=== PATIENT | male | born 1995 | race Two or more races ===

== ENCOUNTER 2023-07-04 13:52 | Emergency (ER) | payer MEDICAID ==
[~2023-07-04] VITALS: Ht 170.2 cm; Wt 96.4 kg
[2023-07-04 15:05] VITALS: BP 152/88; PULSE 108; RESP 18; TEMP 98.4; O2SAT 97
[2023-07-04] MEDS ORDERED: ERY05OO OP (16:01)
== END 2023-07-04 16:07 | disposition home or self-care (01) ==
LOC: ER 13:52
DX: H10.32 Unspecified acute conjunctivitis, left eye (principal)

== ENCOUNTER 2023-10-29 09:35 | Emergency (ER) | payer MEDICAID ==
[~2023-10-29] VITALS: Ht 175.3 cm; Wt 94.9 kg
[~2023-10-29 09:35] MED LIST: ERY05OO OP
[2023-10-29 09:54] VITALS: BP 144/81; PULSE 92; RESP 18; TEMP 97.7; O2SAT 99
[2023-10-29] MEDS ORDERED: KETOROLAC TROMETH 60MG/2ML VIAL IM ONE (10:00)
[2023-10-29 11:17] LABS: Amphetamine Screen, Urine Neg (NEGATIVE); Barbiturate Scree,Urine Neg (NEGATIVE); Benzodiazephine Screen, Urine Neg (NEGATIVE); Cannabinoid Screen, Urine Pos (NEGATIVE); Cocaine Screen, Urine Neg (NEGATIVE); Opiate Scree,Urine Neg (NEGATIVE); Phencyclidine Screen, Urine Neg (NEGATIVE)
[2023-10-29 11:23] LABS: Urine Bacteria NONE SEEN /hpf (None Seen); Urine Blood Negative /uL (Negative); Urine Clarity Clear (Clear); Urine Color Yellow (Yellow); Urine Mucus FEW (None Seen); Urine Protein, UAD TRACE (Negative); Urine Specific Gravity 1.029 (1.001-1.035); Urine Urobilinogen Normal (Negative); Urine WBC 3 /hpf (0 - 3)
[2023-10-29] MEDS ORDERED: IBUP-1456 PO (11:26)
== END 2023-10-29 11:36 | disposition home or self-care (01) ==
LOC: ER 09:35
DX: S76.012A Strain of muscle, fascia and tendon of left hip, initial encounter (principal); J45.909 Unspecified asthma, uncomplicated; F17.210 Nicotine dependence, cigarettes, uncomplicated; F12.10 Cannabis abuse, uncomplicated; F15.10 Other stimulant abuse, uncomplicated; F14.10 Cocaine abuse, uncomplicated; Z79.899 Other long term (current) drug therapy; X58.XXXA Exposure to other specified factors, initial encounter; Y93.39 Activity, other involving climbing, rappelling and jumping off; Y92.89 Other specified places as the place of occurrence of the external cause; Y99.8 Other external cause status
CPT/HCPCS: 73502; 80307; 81001; 96372; 99284; J1885

== ENCOUNTER 2023-11-02 17:44 | Emergency (ER) | payer MEDICAID ==
[~2023-11-02] VITALS: Ht 172.7 cm; Wt 95.5 kg
[~2023-11-02 17:44] MED LIST changes: +IBUP-1456 PO
[2023-11-02] MEDS ORDERED: KETOROLAC TROMETH 60MG/2ML VIAL IM ONE (22:30)
[2023-11-03] MEDS ORDERED: LIDO5PAD8 EX (00:13)
[2023-11-03 00:43] VITALS: BP 132/85; PULSE 98; RESP 20; TEMP 98; O2SAT 99
== END 2023-11-03 00:43 | disposition home or self-care (01) ==
LOC: ER 17:44
DX: S76.012A Strain of muscle, fascia and tendon of left hip, initial encounter (principal); J45.909 Unspecified asthma, uncomplicated; F17.210 Nicotine dependence, cigarettes, uncomplicated; Z79.2 Long term (current) use of antibiotics; Z79.1 Long term (current) use of non-steroidal anti-inflammatories (NSAID); Z79.899 Other long term (current) drug therapy; X58.XXXA Exposure to other specified factors, initial encounter; Y93.89 Activity, other specified; Y92.89 Other specified places as the place of occurrence of the external cause; Y99.8 Other external cause status
CPT/HCPCS: 73700; 96372; 99285; J1885

== ENCOUNTER 2024-02-15 07:36 | Emergency (ER) | payer MEDICAID ==
[~2024-02-15] VITALS: Ht 180.3 cm; Wt 99.1 kg
[~2024-02-15 07:36] MED LIST changes: +LIDO5PAD12 EX
[2024-02-15 08:16] VITALS: BP 118/65; PULSE 91; RESP 18; TEMP 97.1; O2SAT 98
[2024-02-15] MEDS ORDERED: FAMO20TA10 PO (08:27)
[2024-02-15] MEDS ORDERED: HYDR-4924 PO (08:27)
[2024-02-15] MEDS ORDERED: PRED20TA2 PO (08:27)
== END 2024-02-15 08:33 | disposition home or self-care (01) ==
LOC: ER 07:36
DX: T78.40XA Allergy, unspecified, initial encounter (principal); J45.909 Unspecified asthma, uncomplicated; F17.210 Nicotine dependence, cigarettes, uncomplicated; F12.10 Cannabis abuse, uncomplicated; F15.10 Other stimulant abuse, uncomplicated; F14.10 Cocaine abuse, uncomplicated; F11.10 Opioid abuse, uncomplicated; X58.XXXA Exposure to other specified factors, initial encounter

== ENCOUNTER 2025-02-22 17:51 | Emergency (ER) | payer MEDICAID ==
[~2025-02-22] VITALS: Ht 185.4 cm; Wt 77.2 kg
[~2025-02-22 17:51] MED LIST changes: +FAMO20TA10 PO; +HYDR-4924 PO; +PRED20TA2 PO
[2025-02-22] MEDS: ALPRAZolam 0.5 MG TAB PO ONE (19:00)
[2025-02-22] MEDS: KETOROLAC TROMETH 60MG/2ML VIAL IM ONE (19:02)
--- NOTE | 2025-02-22 19:08 | DVH ---
EXAM: XY R KNEE 3V XRAY, XY R ANKLE 3 VIEW CLINICAL INDICATION: FALL TECHNIQUE: XY R KNEE 3V XRAY, XY R ANKLE 3 VIEW Comparison: None FINDINGS/IMPRESSION: There is no evidence of acute fracture or dislocation. The visualized joint space is well maintained. The alignment is anatomical. There is no radiopaque foreign body.
--- NOTE | 2025-02-22 19:15 | DVH ---
EXAM: XY L FOOT 3 VIEW XRAY HISTORY: Great toe injury COMPARISON: None TECHNIQUE: Three views of the left foot were performed. FINDINGS: There is an ununited corner fracture involving the medial head of the proximal phalanx of the great t oe but no acute findings. Bone density is normal. IMPRESSION: Old corner fracture involving the head of the proximal phalanx of the great toe no acute findings
--- NOTE | 2025-02-22 19:16 | DVH ---
EXAM: XY L KNEE 3V XRAY HISTORY: Trauma/injury COMPARISON: XY R KNEE 3V XRAY on DOS: 02/22/25 TECHNIQUE: 3 views of the left knee were performed. FINDINGS: No acute fracture is identified about the left knee. No significant joint space narrowing. Possible joint effusion suprapatellar bursa IMPRESSION: 1. . Possible joint effusion suprapatellar bursa. Follow-up MRI may be helpful
[2025-02-22] MEDS ORDERED: IBUP-1455 PO (19:49)
--- NOTE | 2025-02-22 19:50 | ED.PDOC ---
Musculoskeletal HPI Comments Patient is a pleasant but autistic and schizophrenic 30-year-old male who was brought in by his mom today for evaluation of toe, ankle and bilateral knee concerns. Patient apparently had a fit at home and threw himself on the ground injuring himself. Mom states this is not the 1st time events like that of happened. Patient arrives slightly anxious and mom requested something for anxiety. No blood loss. Patient denies any head trauma. 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 Chief Complaint: Lower Extremity Time Seen by MD: 18:07 Primary Care Provider: GARRETT Choi Notes: Nurses Notes Allergies: Coded Allergies: NO KNOWN ALLERGIES (Unverified , 11/21/15) Home Meds Active Scripts Hydroxyzine HCl (Hydroxyzine Hydrochloride) 25 Mg Tab, 25 MG PO Q6HPRN PRN, #30 TAB Prov:KYLE CLARKE [facility] 02/15/24 Famotidine (PEPCID TABLET) 20 Mg Tb, 1 TAB PO BID for 5 Days, #10 TAB 5 Refills Prov:KYLE CLARKE [facility] 02/15/24 Prednisone (Prednisone) 20 Mg Tab, 40 MG PO DAILY for 5 Days, #10 MG Prov:KYLE CLARKE [facility] 02/15/24 Lidocaine (Lidocaine Patch 5%) 5 % Pad, 1 APPLIC EX DAILY PRN, #30 PATCH 0 Refills Prov:MIKE BAILEY [employer] 11/03/23 Ibuprofen (Ibuprofen) 800 Mg Tab, 1 TAB PO TID, #30 TAB Prov:PATRICIA ARGUETA 10/29/23 Erythromycin (Erythromycin) 5 Mg/Gm Oin, 1 APPLIC OP QID for 7 Days, #5 OZ 0 Refills Prov:ISACC CALDWELL [employer] 07/04/23 Information Source: Patient, Relative (Mother) Mode of Arrival: EMS Location: Bilateral Extremity Location: Ankle, Knee, Other (Left great toe) Timing: Minutes Prehospital treatment: None Severity: Mild Hand Dominance: Right Mechanism: Blunt Trauma Circumstances: Accident Onset of Symptoms: After Trauma Symptoms: Swelling, Pain DVT Risk Factors: NONE Past Medical History PAST MEDICAL HISTORY: Asthma, Schizophrenia Past Medical History (Other): Autism Surgical History: Denies all surgeries Family History Family History: Reviewed,noncontributory to illness Social History Smoker: Cigarettes, Less Than 1 Pack/Day Alcohol: Occasionally Drugs: Cocaine, Heroin, Marijuana, Methamphetamine Lives In: Home Constitutional: denies: chills, diaphoresis, fatigue, fever, malaise, sweats, weakness, others EENTM: denies: blurred vision, double vision, ear bleeding, ear discharge, ear drainage, ear pain, ear ringing, eye pain, eye redness, hearing loss, mouth pain, mouth swelling, nasal discharge, nose bleeding, nose congestion, nose p ain, photophobia, tearing, throat pain, throat swelling, voice changes, others Respiratory: denies: cough, hemoptysis, orthopnea, SOB at rest, shortness of breath, SOB with excertion, stridor, wheezing, others Cardiovascular: denies: chest pain, dizzy spells, diaphoresis, Dyspnea on exertion, edema, irregular heart beat, left arm pain, lightheadedness, palpitations, PND, syncope, others Gastrointestinal: denies: abdomen distended, abdominal pain, blood streaked bowels, constipated, diarrhea, dysphagia, difficulty swallowing, hematemesis, melena, nausea, poor appetite, poor fluid intake, rectal bleeding, rectal pain, vomiting, others Genitourinary: denies: burning, dysuria, flank pain, frequency, hematuria, incontinence, penile discharge, penile sore, pain, testicle pain, testicle swelling, urgency, others Neurological: denies: dizziness, fainting, headache, left sided numbness, left sided weakness, numbness, paresthesia, pre-existing deficit, right sided numbness, right sided weakness, seizure, speech problems, tingling, tremors, weakness, others Musculoskeletal: reports: others (Left great toe, right ankle, bilateral knee pain); denies: back pain, gout, joint pain, joint swelling, muscle pain, muscle stiffness, neck pain Integumetry: denies: bruises, change in color, change in hair/nails, dryness, laceration, lesions, lumps, rash, wounds, others Allergic/Immunocompromised: denies: Difficulty Healing, Frequent Infections, Hives, Itching, others Hematologic/Lymphatic: denies: anemia, blood clots, easy bleeding, easy bruising, swollen glands, others Endocrine: denies: excessive hunger, excessive sweating, excessive thirst, excessive urination, flushing, intolerance to cold, intolerance to heat, unexplained weight gain, unexplained weight loss, others Psychiatric: denies: anxiety, bipolar disorder, depression, hopeless, panic disorder, schizophrenia, sleepless, suicidal, others Physical Exam General Appearance: Moderate Distress ([id number] distress due to pain concerns as well as agitation), Normal HEENT: Normal ENT Inspection, Pharynx Normal, TMs Normal Neck: Full Range of Motion, Non-Tender, Normal, Normal Inspection Respiratory: Chest Non-Tender, Lungs Clear, No Accessory Muscle Use, No Respiratory Distress, Normal Breath Sounds Cardiovascular: No Edema, No JVD, No Murmur, No Gallop, Normal Peripheral Pulses, Regular Rate/Rhythm Breast Exam: Deferred Gastrointestinal: No Organomegaly, Non Tender, No Pulsatile Mass, Normal Bowel Sounds, Soft Genitalia: Deferred Pelvic: Deferred Rectal: Deferred Extremities: Other (Left great toe reveals some angular deformity. Right ankle has localized edema without erythema. Bilateral knees were relatively unremarkable. No definitive edema noted. [id number] reduced range of motion throughout. Neurovascularly intact.) Neurologic: Alert, No Motor Deficits, Normal Affect, Normal Mood, No Sensory Deficits Cerebellar Function: Normal Reflexes: Normal Skin: Dry, Normal Color, Warm Lymphatic: No Adenopathy Was a procedure done? Was a procedure done?: No Differential Diagnosis EXT Differential Diagnosis: Fracture, Sprain, Contusion, Strain X-Ray, Labs, Meds, VS Vital Signs Date Time Temp Pulse Resp B/P (MAP) Pulse Ox O2 Delivery O2 Flow Rate FiO2 02/22/25 18:05 98.5 84 16 132/66 (88) 99 98.5 Current Medications Medications (Trade) Dose Ordered Sig/Leona Route Start Time Stop Time Status Last Admin Alprazolam (Xanax Tablet) 1 mg ONCE ONCE PO 02/22/25 18:15 02/22/25 18:17 DC 02/22/25 19:00 Ketorolac Tromethamine (Toradol Injection) 30 mg ONCE ONCE IM 02/22/25 18:15 02/22/25 18:17 DC 02/22/25 19:02 X-Ray, Labs, Meds, VS Comment All studies performed the ED were evaluated by me personally. Imaging studies of the bilateral knees were unremarkable for any fracture. Right ankle was unremarkable for any fracture concerns. Left great toe appears to have a non healed fracture that is old. Patient has been advised to follow up with primary care provider for discussions related to that injury. Advised mom follow up with psychiatric and primary care support for medication management to address his currently unmedicated anxiety events. 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 Patient should follow up with primary care provider for discussions related to his nonhealing left great toe concern. Additionally, patient should follow up with his psychiatrist for discussions related to anxiety and panic attack events that I believe are not being properly medicated. e-Prescriptions Ibuprofen Micronized (Ibuprofen) 800 Mg Tab 800 MG PO Q8HP PRN, #30 TAB Prov: MITCHELL CRUZ PAC 02/22/25 Discharged With: Self, Relative (Mother) Critical Care Note Critical Care Time?: No Stability Stability form required: No Heart Score Heart Score: Heart Score Response (Comments) Value History N/A 0 EKG N/A 0 Age N/A 0 Risk Factors N/A 0 Troponin N/A 0 Total 0 MITCHELL CRUZ PAC Feb 22, 2025 19:50
[2025-02-22 21:12] VITALS: BP 137/80; PULSE 80; RESP 16; TEMP 98.4; O2SAT 100
== END 2025-02-22 21:22 | disposition home or self-care (01) ==
LOC: EDBD 17:51 → ER 17:52
DX: S93.492A Sprain of other ligament of left ankle, initial encounter (principal); S92.412K Displaced fracture of proximal phalanx of left great toe, subsequent encounter for fracture with nonunion; S80.02XA Contusion of left knee, initial encounter; S80.01XA Contusion of right knee, initial encounter; J45.909 Unspecified asthma, uncomplicated; F20.9 Schizophrenia, unspecified; F17.210 Nicotine dependence, cigarettes, uncomplicated; F84.0 Autistic disorder; X58.XXXA Exposure to other specified factors, initial encounter; Y93.89 Activity, other specified; Y92.89 Other specified places as the place of occurrence of the external cause; Y99.8 Other external cause status
CPT/HCPCS: 73562; 73610; 73630; 96372; 99284; J1885